=== PATIENT | male | born 1950 | race Caucasian/White ===

== ENCOUNTER 2016-11-01 18:20 | Emergency (ER) | payer MEDICARE ==
[~2016-11-01] VITALS: Ht 172.7 cm; Wt 82.7 kg
[~2016-11-01 18:20] MED LIST: ELVI1TAB PO
[2016-11-01] MEDS ORDERED: LOSA50TA37 PO (18:52)
[2016-11-01] MEDS ORDERED: CARV3 PO (18:52)
[2016-11-01] MEDS ORDERED: AMLO-511 PO (18:52)
[2016-11-01] MEDS ORDERED: ELVI1TAB PO (18:52)
[2016-11-01] MEDS ORDERED: DEXAMETHASONE SOD PHOS 4 MG/ML 5 ML VIAL IM ONE (20:15)
[2016-11-01 20:33] VITALS: BP 139/79
== END 2016-11-01 20:38 | disposition home or self-care (01) ==
LOC: EMS 18:21
DX: S10.96XA Insect bite of unspecified part of neck, initial encounter (principal); I10 Essential (primary) hypertension; W57.XXXA Bitten or stung by nonvenomous insect and other nonvenomous arthropods, initial encounter; Y93.89 Activity, other specified; Y92.89 Other specified places as the place of occurrence of the external cause; Y99.8 Other external cause status
CPT/HCPCS: 96372; 99283; J1100